=== PATIENT | female | born 1995 | race Native Hawaiian/Other Pacific Islander ===

== ENCOUNTER 2020-04-24 13:36 | Outpatient (CLI) | payer OTHER ==
[~2020-04-24] VITALS: Ht 175.3 cm; Wt 124.7 kg
[2020-04-24 13:45] VITALS: BP 145/83; TEMP 97.9
== END 2020-04-24 16:00 | disposition home or self-care (01) ==
LOC: INF 13:36
DX: D50.9 Iron deficiency anemia, unspecified (principal)
CPT/HCPCS: 36591; 85014; 85018; 96365; J2916